=== PATIENT | male | born 1990 | race Asian ===

== ENCOUNTER 2023-11-01 22:48 | Inpatient (IN) | payer BC, MEDICAID ==
[~2023-11-01] VITALS: Ht 172.7 cm; Wt 93.3 kg
[2023-11-02] VITALS (21 sets, daily range): BP systolic 81–106; BP diastolic 46–59; PULSE 99–128; RESP 14–23; TEMP 97.5–99.9; O2SAT 94–98
[2023-11-02] MEDS ORDERED: iohexol 300mg/ml 100ml inj. ONE (00:38)
[2023-11-02] MEDS: piperacillin/tazo 3.375gm/50ml 50 ML IV ONE (00:58)
[2023-11-02] MEDS: normal saline 1000ML IV soln IVB ONE (00:59)
[2023-11-02 01:01] LABS: BASOPHILS % (AUTO) 0.4 % (0-1); EOSINOPHILS % (AUTO) 0.5 % (0-6); HEMATOCRIT 43.7 % (42.0-52.0); HEMOGLOBIN 15.3 g/dl (14.0-17.9); LYMPHOCYTES # (AUTO) 0.6 X10'3 (1.1-4.8); LYMPHOCYTES % (AUTO) 6.3 % (21-51); MEAN CORPUSCULAR HEMOGLOBIN 29.6 PG (27.0-31.0); MEAN CORPUSCULAR VOLUME 84.5 FL (78-98); MEAN PLATELET VOLUME 8.8 FL (7.4-10.4); MONOCYTES # (AUTO) 0.7 X10'3 (0-0.9); MONOCYTES % (AUTO) 7.6 % (2-12); NEUTROPHILS # (AUTO) 7.7 X10'3 (1.8-7.7); NEUTROPHILS % (AUTO) 85.2 % (42-75); PLATELET COUNT 212 X10'3 (140-440); RED BLOOD COUNT 5.17 X10'6 (4.70-6.10); WHITE BLOOD COUNT 9.1 X10'3 (4.5-11.0)
[2023-11-02 01:15] LABS: ALBUMIN 2.8 G/DL (3.4-5.0); ANION GAP 14 (8-16); BLOOD UREA NITROGEN 17 MG/DL (7-18); BUN/CREATININE RATIO 14.7 (10.0-20.0); CALCIUM 9.7 MG/DL (8.5-10.1); CHLORIDE 93 MMOL/L (99-107); CREATININE 1.16 MG/DL (0.60-1.10); POTASSIUM 3.6 MMOL/L (3.5-5.1); SODIUM 129 MMOL/L (135-145); TOTAL CARBON DIOXIDE 21.8 MMOL/L (24-32); eCRCL 88 ML/MIN; eGFR 73 ML/MIN
[2023-11-02 01:19] LABS: GLUCOSE 434 MG/DL (70-104)
[2023-11-02 01:37] LABS: LIPASE 11 U/L (16-77)
[2023-11-02] MEDS: metroNIDAZOLE-Flagyl 500mg/NS 100 ML IV ONE (01:48)
[2023-11-02] MEDS: morphine 2 MG/ML inj. syringe IV PRN (01:55)
[2023-11-02] MEDS ORDERED: CLOZ100T PO (02:21)
[2023-11-02] MEDS ORDERED: LITH150C8 PO (02:21)
[2023-11-02] MEDS ORDERED: potassium Cl 20 mEq SR tablet PO PRN (03:30)
[2023-11-02] MEDS ORDERED: magnesium 2GM in 50ml NS 50 ML IV PRN (03:30)
[2023-11-02] MEDS ORDERED: ondansetron 4mg rapidly disintigrating tab PO PRN (03:30)
[2023-11-02] MEDS ORDERED: acetaminophen 650mg rectal suppository RC PRN (03:30)
[2023-11-02] MEDS ORDERED: mag hydrox/Alum hydrox/simeth 30ml oral suspension PO PRN (03:30)
[2023-11-02] MEDS ORDERED: magnesium hydroxide 30ml (MOM) UD suspension PO PRN (03:30)
[2023-11-02] MEDS ORDERED: bisacodyl 10mg suppository rectal RC PRN (03:30)
[2023-11-02] MEDS ORDERED: magnesium Cl slow-release 64mg tablet PO PRN (03:30)
[2023-11-02] MEDS ORDERED: magnesium 4gm in 100ml NS 100 ML IV PRN (03:30)
[2023-11-02 03:38] LABS: ACETONE SMALL (NEGATIVE)
[2023-11-02] MEDS ORDERED: DEXTROSE 15 GM of carb/4 tabs (each vial/BOTTLE has 4 tablets) PO PRN ×4 (03:55→08:10)
[2023-11-02] MEDS ORDERED: dextrose 50%-water 50ml dispensing syringe IV PRN ×4 (03:55→08:10)
[2023-11-02] MEDS ORDERED: glucagon, human recombinant 1mg kit SUBCUT PRN ×2 (03:55→08:10)
[2023-11-02 03:56] LABS: MAGNESIUM 2.1 MG/DL (1.5-2.4); PHOSPHORUS 3.2 MG/DL (2.3-4.5)
[2023-11-02 04:00] LABS: APTT 26 SECONDS (22-32); INR 1.1 INR; PROTHROMBIN TIME 11.6 SECONDS (9.0-12.0)
[2023-11-02] MEDS: acetaminophen 1,000mg/100ml IV 100 ML IV STA (04:22)
[2023-11-02] MEDS: sodium chloride 0.45% 1,000 ML IV SCH (04:22)
[2023-11-02 04:52] LABS: TOTAL CELLS COUNTED 100
[2023-11-02 04:53] LABS: BURR CELLS 1+; ELLIPTOCYTES FEW; PLATELET ESTIMATE NORMAL; POIKILOCYTOSIS 1+
[2023-11-02] MEDS ORDERED: fentaNYL/PF 50MCG/1 ML 2ML syringe ONE ×2 (04:55→05:31)
[2023-11-02] MEDS ORDERED: propofol inj 20 ML IV ONE (04:56)
[2023-11-02] MEDS ORDERED: rocuronium 10mg/ml inj IV ONE (04:56)
[2023-11-02] MEDS ORDERED: midazolam 1 mg/ML 2ml injection ONE (04:56)
[2023-11-02] MEDS: HYDROmorphone inj. 0.5 MG/0.5 ML DISP.SYRIN IV PRN (05:03)
[2023-11-02] MEDS ORDERED: sevoflurane 250ml liquid IH ONE (05:09)
[2023-11-02] MEDS ORDERED: neostigmine methylsulfate 1 MG/ML 10ml vial ONE (06:24)
[2023-11-02] MEDS ORDERED: glycopyrrolate 0.2mg/ml inj ONE (06:24)
[2023-11-02] MEDS ORDERED: proCHLORperazine 10 MG/2 ml inj IV PRN (06:40)
[2023-11-02] MEDS ORDERED: ondansetron/PF 4mg/2ml inj IV PRN (06:40)
[2023-11-02] MEDS ORDERED: morphine 4 MG/ML inj SYRINge IV PRN (06:40)
[2023-11-02] MEDS ORDERED: morphine 2 MG/ML inj. syringe IV PRN (06:40)
[2023-11-02] MEDS ORDERED: meperidine/PF 25mg/ml syringe IV PRN ×3 (06:40)
[2023-11-02] MEDS ORDERED: metroNIDAZOLE-Flagyl 500mg/NS 100 ML IV SCH (08:00)
[2023-11-02] MEDS: LIDOcaine 1% (10mg/ml)w/preservative inj. 20ml MDV ONE (08:14)
[2023-11-02] MEDS: ringers solution, lacted 1,000 ML IV SCH (08:14)
[2023-11-02] MEDS: piperacillin/tazo 4.5gm/100ml 100 ML IV SCH (08:27)
[2023-11-02] MEDS: clindamycin 300mg/D5W 50mL 50 ML IV SCH (08:27)
[2023-11-02] MEDS: INSULIN LISPRO 100 UNIT/ML INSULN.PEN MULTI-DOSE SQ SCH ×2 (08:58→09:00)
[2023-11-02] MEDS: VANCOmycin 1250MG/NS 250ml Bag 250 ML IV SCH (09:04)
[2023-11-02] MEDS: docusate sod 100mg capsule PO SCH (09:43)
[2023-11-02] MEDS: lithium carbonate 150mg capsule PO SCH (09:43)
[2023-11-02] MEDS: K and/or MAG REPLACEMENT MC SCH (10:11)
[2023-11-02] MEDS ORDERED: INSULIN LISPRO 100 UNIT/ML INSULN.PEN MULTI-DOSE SQ SCH (12:00)
[2023-11-02] MEDS: normal saline 1000ml 1,000 ML IV SCH (12:33)
[2023-11-02] MEDS: HYDROcodone/acetaminophen 10/325mg tab PO PRN (18:17)
[2023-11-02] MEDS ORDERED: CLOZAPINE PO SCH (21:00)
[2023-11-02] MEDS ORDERED: insulin glargine (Lantus) pen - multi-dose SQ SCH (21:00)
[2023-11-02] MEDS: insulin glargine (Lantus) pen - multi-dose SQ SCH (22:43)
[2023-11-03] VITALS (15 sets, daily range): BP systolic 97–124; BP diastolic 53–71; PULSE 86–111; RESP 12–25; TEMP 98.1–98.6; O2SAT 96–99
[2023-11-03 05:44] LABS: BASOPHILS % (AUTO) 0.4 % (0-1); EOSINOPHILS # (AUTO) 0.1 X10'3 (0-0.9); EOSINOPHILS % (AUTO) 1.1 % (0-6); HEMATOCRIT 34.5 % (42.0-52.0); HEMOGLOBIN 11.9 g/dl (14.0-17.9); LYMPHOCYTES # (AUTO) 0.9 X10'3 (1.1-4.8); LYMPHOCYTES % (AUTO) 7.9 % (21-51); MEAN CORPUSCULAR HEMOGLOBIN 29.3 PG (27.0-31.0); MEAN CORPUSCULAR HGB CONC 34.6 g/dL (33.0-36.5); MEAN CORPUSCULAR VOLUME 84.8 FL (78-98); MEAN PLATELET VOLUME 8.8 FL (7.4-10.4); MONOCYTES # (AUTO) 1.4 X10'3 (0-0.9); MONOCYTES % (AUTO) 12.8 % (2-12); NEUTROPHILS # (AUTO) 8.4 X10'3 (1.8-7.7); NEUTROPHILS % (AUTO) 77.8 % (42-75); PLATELET COUNT 199 X10'3 (140-440); RED BLOOD COUNT 4.06 X10'6 (4.70-6.10); RED CELL DISTRIBUTION WIDTH 13.2 % (11.5-14.5); WHITE BLOOD COUNT 10.8 X10'3 (4.5-11.0)
[2023-11-03 06:06] LABS: ALANINE AMINOTRANSFERASE 31 U/L (12-78); ALBUMIN 1.4 G/DL (3.4-5.0); ALBUMIN/GLOBULIN RATIO 0.4 (1.1-1.5); ALKALINE PHOSPHATASE 102 IU/L (46-116); ANION GAP 13 (8-16); ASPARTATE AMINO TRANSFERASE 26 U/L (10-37); BILIRUBIN,TOTAL 0.7 MG/DL (0.1-1.0); BLOOD UREA NITROGEN 8 MG/DL (7-18); CALCIUM 8.3 MG/DL (8.5-10.1); CHLORIDE 99 MMOL/L (99-107); CHOL/HDL RATIO 8.4 (0.00-4.99); CHOLESTEROL 92 MG/DL (0-200); GLUCOSE 257 MG/DL (70-104); HDL CHOLESTEROL 11 MG/DL (35-60); LDL CHOLESTEROL 29 MG/DL (50-100); POTASSIUM 3.1 MMOL/L (3.5-5.1); SODIUM 133 MMOL/L (135-145); TOTAL CARBON DIOXIDE 21.2 MMOL/L (24-32); TOTAL PROTEIN 5.2 G/DL (6.4-8.2); TRIGLYCERIDES 281 MG/DL (20-135); eCRCL 127 ML/MIN; eGFR > 90 ML/MIN
[2023-11-03 07:31] LABS: MICROCYTOSIS 1+; PLATELET ESTIMATE NORMAL; TOTAL CELLS COUNTED 100
[2023-11-03] MEDS: potassium Cl 20 mEq SR tablet PO PRN (10:15)
[2023-11-03] MEDS ORDERED: morphine 2 MG/ML inj. syringe IV PRN (16:05)
[2023-11-03] MEDS ORDERED: morphine 4 MG/ML inj SYRINge IV PRN (16:05)
[2023-11-03] MEDS ORDERED: meperidine/PF 25mg/ml syringe IV PRN ×3 (16:05)
[2023-11-03] MEDS ORDERED: ondansetron/PF 4mg/2ml inj IV PRN (16:05)
[2023-11-03] MEDS ORDERED: proCHLORperazine 10 MG/2 ml inj IV PRN (16:05)
[2023-11-03] MEDS: ringers solution, lacted 1,000 ML IV SCH (16:05)
[2023-11-03] MEDS ORDERED: fentaNYL/PF 50MCG/1 ML 2ML syringe ONE ×2 (16:11→17:48)
[2023-11-03] MEDS ORDERED: propofol inj 20 ML IV ONE (16:11)
[2023-11-03] MEDS ORDERED: midazolam 1 mg/ML 2ml injection ONE (16:11)
[2023-11-03] MEDS ORDERED: rocuronium 10mg/ml inj IV ONE (16:11)
[2023-11-03] MEDS ORDERED: sevoflurane 250ml liquid IH ONE (16:14)
[2023-11-03] MEDS ORDERED: acetaminophen 1,000mg/100ml IV 100 ML IV ONE (18:31)
[2023-11-03] MEDS ORDERED: neostigmine methylsulfate 1 MG/ML 10ml vial ONE (18:57)
[2023-11-03] MEDS ORDERED: glycopyrrolate 0.2mg/ml inj ONE (18:58)
[2023-11-03] MEDS: VANCOMYCIN LEVEL IV ONE (20:30)
[2023-11-03] MEDS: HYDROmorphone/PF 0.2 MG/ML SYRINGE IV PRN (20:53)
[2023-11-03 21:10] LABS: ALBUMIN 1.2 G/DL (3.4-5.0); ANION GAP 10 (8-16); BLOOD UREA NITROGEN 8 MG/DL (7-18); BUN/CREATININE RATIO 10.5 (10.0-20.0); CALCIUM 7.6 MG/DL (8.5-10.1); CHLORIDE 103 MMOL/L (99-107); CREATININE 0.76 MG/DL (0.60-1.10); GLUCOSE 244 MG/DL (70-104); POTASSIUM 3.2 MMOL/L (3.5-5.1); SODIUM 136 MMOL/L (135-145); TOTAL CARBON DIOXIDE 22.9 MMOL/L (24-32); VANCOMYCIN,TROUGH 4.8 ug/mL (10.0-20.0); eCRCL 134 ML/MIN; eGFR > 90 ML/MIN
[2023-11-03] MEDS ORDERED: VANCOmycin 1250MG/NS 250ml Bag 250 ML IV SCH (21:25)
[2023-11-03] MEDS: potassium Cl 40MEQ/1/2NS 520ml 520 ML IV PRN (21:49)
[2023-11-03] MEDS: VANCOmycin 1250MG/NS 250ml Bag 250 ML IV SCH (21:50)
[2023-11-03 21:51] LABS: BASOPHILS % (AUTO) 0.3 % (0-1); EOSINOPHILS # (AUTO) 0.1 X10'3 (0-0.9); EOSINOPHILS % (AUTO) 0.5 % (0-6); HEMATOCRIT 34.3 % (42.0-52.0); HEMOGLOBIN 11.5 g/dl (14.0-17.9); LYMPHOCYTES # (AUTO) 0.7 X10'3 (1.1-4.8); LYMPHOCYTES % (AUTO) 5.9 % (21-51); MEAN CORPUSCULAR HEMOGLOBIN 28.6 PG (27.0-31.0); MEAN CORPUSCULAR HGB CONC 33.6 g/dL (33.0-36.5); MEAN CORPUSCULAR VOLUME 85.1 FL (78-98); MEAN PLATELET VOLUME 8.7 FL (7.4-10.4); MONOCYTES # (AUTO) 1.2 X10'3 (0-0.9); MONOCYTES % (AUTO) 9.8 % (2-12); NEUTROPHILS # (AUTO) 10.3 X10'3 (1.8-7.7); NEUTROPHILS % (AUTO) 83.5 % (42-75); PLATELET COUNT 198 X10'3 (140-440); RED BLOOD COUNT 4.03 X10'6 (4.70-6.10); RED CELL DISTRIBUTION WIDTH 13.3 % (11.5-14.5); WHITE BLOOD COUNT 12.4 X10'3 (4.5-11.0)
[2023-11-03 23:04] LABS: NUCLEATED RED BLOOD CELLS 1 /100WBC (0-0); PLATELET ESTIMATE NORMAL; TOTAL CELLS COUNTED 100
[2023-11-03 23:07] LABS: POIKILOCYTOSIS FEW
[2023-11-03] MEDS: clindamycin-Cleocin 900mg/D5W 50 ML IV SCH (23:27)
[2023-11-04] VITALS (23 sets, daily range): BP systolic 92–114; BP diastolic 44–60; PULSE 81–97; RESP 9–31; O2SAT 91–98
[2023-11-04] MEDS: acetaminophen 1,000mg/100ml IV 100 ML IV ONE (02:41)
[2023-11-04 03:11] LABS: BASOPHILS % (AUTO) 0.2 % (0-1); EOSINOPHILS # (AUTO) 0.1 X10'3 (0-0.9); EOSINOPHILS % (AUTO) 0.6 % (0-6); HEMOGLOBIN 11.3 g/dl (14.0-17.9); LYMPHOCYTES # (AUTO) 0.8 X10'3 (1.1-4.8); LYMPHOCYTES % (AUTO) 5.6 % (21-51); MEAN CORPUSCULAR HEMOGLOBIN 28.4 PG (27.0-31.0); MEAN CORPUSCULAR HGB CONC 33.4 g/dL (33.0-36.5); MEAN CORPUSCULAR VOLUME 85.2 FL (78-98); MEAN PLATELET VOLUME 8.7 FL (7.4-10.4); MONOCYTES % (AUTO) 7.2 % (2-12); NEUTROPHILS % (AUTO) 86.4 % (42-75); PLATELET COUNT 217 X10'3 (140-440); RED BLOOD COUNT 3.99 X10'6 (4.70-6.10); RED CELL DISTRIBUTION WIDTH 13.6 % (11.5-14.5); WHITE BLOOD COUNT 13.9 X10'3 (4.5-11.0)
[2023-11-04 03:34] LABS: ALANINE AMINOTRANSFERASE 25 U/L (12-78); ALBUMIN 1.2 G/DL (3.4-5.0); ALBUMIN/GLOBULIN RATIO 0.3 (1.1-1.5); ALKALINE PHOSPHATASE 90 IU/L (46-116); ANION GAP 9 (8-16); ASPARTATE AMINO TRANSFERASE 28 U/L (10-37); BILIRUBIN,TOTAL 0.6 MG/DL (0.1-1.0); BLOOD UREA NITROGEN 5 MG/DL (7-18); BUN/CREATININE RATIO 6.3 (10.0-20.0); CALCIUM 7.5 MG/DL (8.5-10.1); CHLORIDE 106 MMOL/L (99-107); GLUCOSE 219 MG/DL (70-104); MAGNESIUM 2.1 MG/DL (1.5-2.4); POTASSIUM 3.8 MMOL/L (3.5-5.1); SODIUM 138 MMOL/L (135-145); TOTAL CARBON DIOXIDE 23.2 MMOL/L (24-32); TOTAL PROTEIN 5.1 G/DL (6.4-8.2); eCRCL 127 ML/MIN; eGFR > 90 ML/MIN
[2023-11-04] MEDS ORDERED: VANCOmycin 1250MG/NS 250ml Bag 250 ML IV SCH (05:00)
[2023-11-04 08:09] LABS: PHOSPHORUS 2.8 MG/DL (2.3-4.5)
[2023-11-04] MEDS: acetaminophen 325mg tablet PO PRN (16:39)
[2023-11-04] MEDS: clozapine 100mg tablet PO SCH (20:35)
[2023-11-04] MEDS: albumin (human) 25% 100 ML IV solution IV ONE (20:36)
[2023-11-04] MEDS: VANCOMYCIN LEVEL IV ONE (20:36)
[2023-11-05] VITALS (10 sets, daily range): BP systolic 99–120; BP diastolic 49–59; PULSE 81–88; RESP 14–34; TEMP 98.8–99.1; O2SAT 94–96
[2023-11-05 04:31] LABS: BASOPHILS % (AUTO) 0.3 % (0-1); EOSINOPHILS # (AUTO) 0.1 X10'3 (0-0.9); EOSINOPHILS % (AUTO) 0.8 % (0-6); HEMATOCRIT 31.1 % (42.0-52.0); HEMOGLOBIN 10.3 g/dl (14.0-17.9); LYMPHOCYTES # (AUTO) 0.7 X10'3 (1.1-4.8); LYMPHOCYTES % (AUTO) 4.9 % (21-51); MEAN CORPUSCULAR HEMOGLOBIN 28.2 PG (27.0-31.0); MEAN CORPUSCULAR HGB CONC 33.1 g/dL (33.0-36.5); MEAN CORPUSCULAR VOLUME 85.2 FL (78-98); MEAN PLATELET VOLUME 8.3 FL (7.4-10.4); MONOCYTES # (AUTO) 0.9 X10'3 (0-0.9); NEUTROPHILS # (AUTO) 13.3 X10'3 (1.8-7.7); PLATELET COUNT 217 X10'3 (140-440); RED BLOOD COUNT 3.66 X10'6 (4.70-6.10); RED CELL DISTRIBUTION WIDTH 13.6 % (11.5-14.5); WHITE BLOOD COUNT 15.1 X10'3 (4.5-11.0)
[2023-11-05 04:48] LABS: ALANINE AMINOTRANSFERASE 28 U/L (12-78); ALBUMIN 1.7 G/DL (3.4-5.0); ALBUMIN/GLOBULIN RATIO 0.4 (1.1-1.5); ALKALINE PHOSPHATASE 94 IU/L (46-116); ANION GAP 11 (8-16); ASPARTATE AMINO TRANSFERASE 28 U/L (10-37); BILIRUBIN,TOTAL 0.7 MG/DL (0.1-1.0); BLOOD UREA NITROGEN 7 MG/DL (7-18); BUN/CREATININE RATIO 10.8 (10.0-20.0); CALCIUM 7.7 MG/DL (8.5-10.1); CHLORIDE 106 MMOL/L (99-107); CREATININE 0.65 MG/DL (0.60-1.10); GLUCOSE 267 MG/DL (70-104); MAGNESIUM 2.2 MG/DL (1.5-2.4); PHOSPHORUS 3.3 MG/DL (2.3-4.5); SODIUM 140 MMOL/L (135-145); TOTAL CARBON DIOXIDE 22.8 MMOL/L (24-32); TOTAL PROTEIN 5.5 G/DL (6.4-8.2); eCRCL 156 ML/MIN; eGFR > 90 ML/MIN
[2023-11-05 05:08] LABS: PLATELET ESTIMATE NORMAL; TOTAL CELLS COUNTED 100
[2023-11-05] MEDS ORDERED: magnesium 2GM in 50ml NS 50 ML IV PRN (05:10)
[2023-11-05] MEDS ORDERED: magnesium 4gm in 100ml NS 100 ML IV PRN (05:10)
[2023-11-05] MEDS: VANCOMYCIN 1,500MG in NS 300ml IVPB IV SCH (05:12)
[2023-11-05] MEDS: potassium Cl 40MEQ/1/2NS 520ml 520 ML IV PRN (05:28)
[2023-11-05] MEDS: INSULIN LISPRO 100 UNIT/ML INSULN.PEN MULTI-DOSE SQ SCH (09:00)
[2023-11-05] MEDS ORDERED: magnesium sulf-water 4G/100mL 100 ML IV PRN (20:45)
[2023-11-05] MEDS ORDERED: magnesium sulf-water 2g/50mL 50 ML IV PRN (20:45)
[2023-11-05] MEDS: insulin glargine (Lantus) pen - multi-dose SQ SCH (21:50)
[2023-11-05] MEDS: potassium Cl 20 mEq SR tablet PO PRN (22:26)
[2023-11-06] VITALS (18 sets, daily range): BP systolic 110–137; BP diastolic 55–127; PULSE 80–95; RESP 15–26; TEMP 97.8–99.7; O2SAT 92–99
[2023-11-06] MEDS: VANCOMYCIN LEVEL IV ONE (05:07)
[2023-11-06 05:12] LABS: BASOPHILS % (AUTO) 0.1 % (0-1); EOSINOPHILS # (AUTO) 0.1 X10'3 (0-0.9); HEMOGLOBIN 10.5 g/dl (14.0-17.9); LYMPHOCYTES # (AUTO) 0.9 X10'3 (1.1-4.8); LYMPHOCYTES % (AUTO) 6.6 % (21-51); MEAN CORPUSCULAR HEMOGLOBIN 28.9 PG (27.0-31.0); MEAN CORPUSCULAR HGB CONC 33.9 g/dL (33.0-36.5); MEAN CORPUSCULAR VOLUME 85.2 FL (78-98); MEAN PLATELET VOLUME 8.5 FL (7.4-10.4); MONOCYTES # (AUTO) 0.9 X10'3 (0-0.9); MONOCYTES % (AUTO) 6.2 % (2-12); NEUTROPHILS % (AUTO) 86.1 % (42-75); PLATELET COUNT 237 X10'3 (140-440); RED BLOOD COUNT 3.63 X10'6 (4.70-6.10); RED CELL DISTRIBUTION WIDTH 13.5 % (11.5-14.5); WHITE BLOOD COUNT 13.9 X10'3 (4.5-11.0)
[2023-11-06 05:37] LABS: ALANINE AMINOTRANSFERASE 32 U/L (12-78); ALBUMIN 1.5 G/DL (3.4-5.0); ALBUMIN/GLOBULIN RATIO 0.4 (1.1-1.5); ALKALINE PHOSPHATASE 87 IU/L (46-116); ANION GAP 10 (8-16); ASPARTATE AMINO TRANSFERASE 27 U/L (10-37); BILIRUBIN,TOTAL 0.5 MG/DL (0.1-1.0); BLOOD UREA NITROGEN 7 MG/DL (7-18); BUN/CREATININE RATIO 10.8 (10.0-20.0); CALCIUM 7.5 MG/DL (8.5-10.1); CHLORIDE 107 MMOL/L (99-107); CREATININE 0.65 MG/DL (0.60-1.10); GLUCOSE 238 MG/DL (70-104); MAGNESIUM 2.2 MG/DL (1.5-2.4); PHOSPHORUS 2.9 MG/DL (2.3-4.5); POTASSIUM 3.1 MMOL/L (3.5-5.1); SODIUM 141 MMOL/L (135-145); TOTAL CARBON DIOXIDE 24.2 MMOL/L (24-32); TOTAL PROTEIN 5.5 G/DL (6.4-8.2); VANCOMYCIN,TROUGH 14.9 ug/mL (10.0-20.0); eCRCL 156 ML/MIN; eGFR > 90 ML/MIN
[2023-11-06] MEDS: MULTIVIT-MIN/FERROUS GLUCONATE 9 MG/15 ML LIQUID PO SCH (09:17)
[2023-11-06] MEDS: vancomycin 1,750 MG in NS 350ml IV soln IV SCH (14:08)
[2023-11-06] MEDS ORDERED: morphine 2 MG/ML inj. syringe IV PRN (17:45)
[2023-11-06] MEDS ORDERED: ondansetron/PF 4mg/2ml inj IV PRN (17:45)
[2023-11-06] MEDS: ringers solution, lacted 1,000 ML IV SCH (17:45)
[2023-11-06] MEDS ORDERED: meperidine/PF 25mg/ml syringe IV PRN ×3 (17:45)
[2023-11-06] MEDS ORDERED: proCHLORperazine 10 MG/2 ml inj IV PRN (17:45)
[2023-11-06] MEDS ORDERED: morphine 4 MG/ML inj SYRINge IV PRN (17:45)
[2023-11-06] MEDS ORDERED: midazolam 1 mg/ML 2ml injection ONE (17:57)
[2023-11-06] MEDS ORDERED: fentaNYL/PF 50MCG/1 ML 2ML syringe ONE (17:57)
[2023-11-06] MEDS ORDERED: propofol inj 20 ML IV ONE (17:58)
[2023-11-06] MEDS ORDERED: sevoflurane 250ml liquid IH ONE (18:11)
[2023-11-07] VITALS (7 sets, daily range): BP systolic 110–120; BP diastolic 58–63; PULSE 78–94; RESP 14–22; TEMP 97.3–99; O2SAT 92–97
[2023-11-07 04:23] LABS: BASOPHILS % (AUTO) 0.1 % (0-1); EOSINOPHILS % (AUTO) 0.1 % (0-6); HEMATOCRIT 31.1 % (42.0-52.0); HEMOGLOBIN 10.5 g/dl (14.0-17.9); LYMPHOCYTES # (AUTO) 0.7 X10'3 (1.1-4.8); LYMPHOCYTES % (AUTO) 3.9 % (21-51); MEAN CORPUSCULAR HEMOGLOBIN 28.9 PG (27.0-31.0); MEAN CORPUSCULAR HGB CONC 33.7 g/dL (33.0-36.5); MEAN CORPUSCULAR VOLUME 85.6 FL (78-98); MEAN PLATELET VOLUME 8.1 FL (7.4-10.4); MONOCYTES # (AUTO) 0.8 X10'3 (0-0.9); MONOCYTES % (AUTO) 4.6 % (2-12); NEUTROPHILS # (AUTO) 15.4 X10'3 (1.8-7.7); NEUTROPHILS % (AUTO) 91.3 % (42-75); PLATELET COUNT 282 X10'3 (140-440); RED BLOOD COUNT 3.63 X10'6 (4.70-6.10); RED CELL DISTRIBUTION WIDTH 13.7 % (11.5-14.5); WHITE BLOOD COUNT 16.9 X10'3 (4.5-11.0)
[2023-11-07 04:37] LABS: ALANINE AMINOTRANSFERASE 39 U/L (12-78); ALBUMIN 1.4 G/DL (3.4-5.0); ALBUMIN/GLOBULIN RATIO 0.4 (1.1-1.5); ALKALINE PHOSPHATASE 90 IU/L (46-116); ANION GAP 9 (8-16); ASPARTATE AMINO TRANSFERASE 37 U/L (10-37); BILIRUBIN,TOTAL 0.6 MG/DL (0.1-1.0); BLOOD UREA NITROGEN 6 MG/DL (7-18); BUN/CREATININE RATIO 8.7 (10.0-20.0); CALCIUM 7.3 MG/DL (8.5-10.1); CHLORIDE 106 MMOL/L (99-107); CREATININE 0.69 MG/DL (0.60-1.10); GLUCOSE 249 MG/DL (70-104); MAGNESIUM 2.1 MG/DL (1.5-2.4); PHOSPHORUS 2.9 MG/DL (2.3-4.5); POTASSIUM 3.2 MMOL/L (3.5-5.1); SODIUM 140 MMOL/L (135-145); TOTAL CARBON DIOXIDE 24.6 MMOL/L (24-32); TOTAL PROTEIN 5.2 G/DL (6.4-8.2); eCRCL 147 ML/MIN; eGFR > 90 ML/MIN
[2023-11-07] MEDS: VANCOMYCIN LEVEL IV ONE (12:30)
[2023-11-07] MEDS: acetaminophen 325mg tablet PO PRN (13:09)
[2023-11-07] MEDS: ARGININE/GLUTAMINE/CALCIUM BMB (JUVEN 19.3GM PKT) 1 EACH POWD.PACK PO SCH (17:30)
[2023-11-08] VITALS (16 sets, daily range): BP systolic 92–129; BP diastolic 45–73; PULSE 73–109; RESP 15–22; TEMP 97.4–98.2; O2SAT 94–99
[2023-11-08 07:34] LABS: BASOPHILS % (AUTO) 0.1 % (0-1); EOSINOPHILS # (AUTO) 0.1 X10'3 (0-0.9); EOSINOPHILS % (AUTO) 0.8 % (0-6); LYMPHOCYTES # (AUTO) 0.8 X10'3 (1.1-4.8); LYMPHOCYTES % (AUTO) 5.1 % (21-51); MEAN CORPUSCULAR HEMOGLOBIN 28.3 PG (27.0-31.0); MEAN CORPUSCULAR HGB CONC 32.8 g/dL (33.0-36.5); MEAN CORPUSCULAR VOLUME 86.3 FL (78-98); MEAN PLATELET VOLUME 7.6 FL (7.4-10.4); MONOCYTES # (AUTO) 0.7 X10'3 (0-0.9); MONOCYTES % (AUTO) 4.6 % (2-12); NEUTROPHILS # (AUTO) 14.2 X10'3 (1.8-7.7); NEUTROPHILS % (AUTO) 89.4 % (42-75); PRE OP HEMATOCRIT 30.3 % (42.0-52.0); PRE OP PLATELET COUNT 320 X10'3 (140-440); RED BLOOD COUNT 3.51 X10'6 (4.70-6.10)
[2023-11-08 07:41] LABS: PRE OP WHITE BLOOD COUNT 15.8 10'3 (4.8-10.8)
[2023-11-08 07:42] LABS: INR 1.2 INR; PRE OP HEMOGLOBIN 9.9 g/dL (14.0-17.9); PROTHROMBIN TIME 12.3 SECONDS (9.0-12.0)
[2023-11-08 07:44] LABS: ALANINE AMINOTRANSFERASE 35 U/L (12-78); ALBUMIN 1.3 G/DL (3.4-5.0); ALBUMIN/GLOBULIN RATIO 0.3 (1.1-1.5); ALKALINE PHOSPHATASE 82 IU/L (46-116); ANION GAP 8 (8-16); ASPARTATE AMINO TRANSFERASE 20 U/L (10-37); BILIRUBIN,TOTAL 0.4 MG/DL (0.1-1.0); BLOOD UREA NITROGEN 5 MG/DL (7-18); BUN/CREATININE RATIO 8.1 (10.0-20.0); CALCIUM 7.3 MG/DL (8.5-10.1); CHLORIDE 111 MMOL/L (99-107); CREATININE 0.62 MG/DL (0.60-1.10); GLUCOSE 206 MG/DL (70-104); SODIUM 143 MMOL/L (135-145); TOTAL CARBON DIOXIDE 24.3 MMOL/L (24-32); TOTAL PROTEIN 5.2 G/DL (6.4-8.2); eCRCL 164 ML/MIN; eGFR > 90 ML/MIN
[2023-11-08 08:00] LABS: POTASSIUM 2.9 MMOL/L (3.5-5.1)
[2023-11-08 17:41] LABS: C-REACTIVE PROTEIN 14.73 MG/DL (0.0-0.5); CREATINE KINASE 63 U/L (39-308); LACTATE DEHYDROGENASE 362 U/L (85-227)
[2023-11-08 17:51] LABS: OSMOLALITY 300 MOSM/K (280-300)
[2023-11-08 18:41] LABS: BILIRUBIN,URINE NEGATIVE (Neg); CLARITY,URINE CLEAR (Clear); COLOR,URINE YELLOW (Yellow); GLUCOSE, URINE 100 mg/dl (Neg); KETONES,URINE 15 mg/dl (Neg); LEUKOCYTE ESTERASE ,URINE NEGATIVE (Neg); NITRITES, URINE NEGATIVE (Neg); OCCULT BLOOD,URINE NEGATIVE (Neg); PROTEIN,URINE NEGATIVE (Neg); UROBILINOGEN,URINE 0.2 E.U/dL (0.2-1.0)
[2023-11-08 18:47] LABS: UA COLLECTION TYPE NON-SPECIFIED
[2023-11-08] MEDS ORDERED: sevoflurane 250ml liquid IH ONE (19:35)
[2023-11-08 19:48] LABS: ISTAT ANION GAP 9 (8-12); ISTAT BUN 5 mg/dL (7-18); ISTAT CL 108 mmol/L (99-107); ISTAT CREATININE 0.5 mg/dL (0.8-1.3); ISTAT GLUCOSE 182 mg/dL (70-104); ISTAT HGB 11.6 g/dl (14.0-17.9); ISTAT Hct 34 %PCV (42-52); ISTAT K 3.1 mmol/L (3.5-5.1); ISTAT NA 142 mmol/L (135-145); ISTAT TOTAL CO2 25 mmol/L (24-32); ISTAT eGFR > 90 ML/MIN
[2023-11-08] MEDS ORDERED: meperidine/PF 25mg/ml syringe IV PRN (19:50)
[2023-11-08] MEDS ORDERED: morphine 2 MG/ML inj. syringe IV PRN (19:50)
[2023-11-08] MEDS ORDERED: hydrALAZINE 20mg/ml inj. IV PRN (19:50)
[2023-11-08] MEDS ORDERED: labetalol 20mg/4ml (5mg/ml) syringe IV PRN (19:50)
[2023-11-08] MEDS ORDERED: proCHLORperazine 10 MG/2 ml inj IV PRN (19:50)
[2023-11-08] MEDS ORDERED: morphine 4 MG/ML inj SYRINge IV PRN (19:50)
[2023-11-08] MEDS ORDERED: ondansetron/PF 4mg/2ml inj IV PRN (19:50)
[2023-11-08] MEDS ORDERED: HYDROmorphone/PF 0.2 MG/ML SYRINGE IV PRN (19:50)
[2023-11-08] MEDS: ringers solution, lacted 1,000 ML IV SCH (19:50)
[2023-11-08] MEDS ORDERED: midazolam 1 mg/ML 2ml injection ONE (19:53)
[2023-11-08] MEDS ORDERED: fentaNYL /PF 50mcg/ml 5ml ampule ONE ×2 (19:55→21:28)
[2023-11-08] MEDS ORDERED: rocuronium 10mg/ml inj IV ONE (20:36)
[2023-11-08] MEDS ORDERED: LIDOcaine 2% (20mg/ml) 5ml vial ONE (20:36)
[2023-11-08] MEDS ORDERED: propofol inj 20 ML IV ONE (20:36)
[2023-11-08] MEDS ORDERED: ondansetron/PF 4mg/2ml inj ONE (20:36)
[2023-11-08] MEDS ORDERED: 0.9 % SODIUM CHLORIDE 10 ML VIAL ONE ×4 (21:28)
[2023-11-08] MEDS ORDERED: phenylephrine 10mg/ml inj. -priapism dosing ONE (21:28)
[2023-11-08] MEDS ORDERED: albumin (Human) 5% 250ml 250 ML IV ONE ×2 (21:29)
[2023-11-08] MEDS ORDERED: neostigmine methylsulfate 1 MG/ML 10ml vial ONE (21:54)
[2023-11-08] MEDS ORDERED: glycopyrrolate 0.2mg/ml inj ONE (21:54)
[2023-11-08] MEDS: acetaminophen 1,000mg/100ml IV 100 ML IV ONE (22:30)
[2023-11-08] MEDS: HYDROmorphone/PF 0.2 MG/ML SYRINGE IV PRN (22:38)
[2023-11-08] MEDS: insulin regular, human 10 units/0.1 ml syringe IV ONE (22:42)
[2023-11-09] VITALS (11 sets, daily range): BP systolic 88–119; BP diastolic 52–64; PULSE 77–90; RESP 16–20; TEMP 97.2–98.6; O2SAT 93–96
[2023-11-09 05:00] LABS: BASOPHILS % (AUTO) 0.2 % (0-1); EOSINOPHILS # (AUTO) 0.1 X10'3 (0-0.9); EOSINOPHILS % (AUTO) 0.4 % (0-6); HEMATOCRIT 23.4 % (42.0-52.0); HEMOGLOBIN 7.8 g/dl (14.0-17.9); LYMPHOCYTES # (AUTO) 0.9 X10'3 (1.1-4.8); LYMPHOCYTES % (AUTO) 5.5 % (21-51); MEAN CORPUSCULAR HEMOGLOBIN 28.6 PG (27.0-31.0); MEAN CORPUSCULAR HGB CONC 33.3 g/dL (33.0-36.5); MEAN CORPUSCULAR VOLUME 85.9 FL (78-98); MEAN PLATELET VOLUME 7.5 FL (7.4-10.4); MONOCYTES # (AUTO) 0.6 X10'3 (0-0.9); MONOCYTES % (AUTO) 3.7 % (2-12); NEUTROPHILS # (AUTO) 15.2 X10'3 (1.8-7.7); NEUTROPHILS % (AUTO) 90.2 % (42-75); PLATELET COUNT 360 X10'3 (140-440); RED BLOOD COUNT 2.73 X10'6 (4.70-6.10); RED CELL DISTRIBUTION WIDTH 13.9 % (11.5-14.5); WHITE BLOOD COUNT 16.9 X10'3 (4.5-11.0)
[2023-11-09 05:52] LABS: ALBUMIN 1.5 G/DL (3.4-5.0); ANION GAP 9 (8-16); BLOOD UREA NITROGEN 6 MG/DL (7-18); BUN/CREATININE RATIO 8.8 (10.0-20.0); CALCIUM 7.3 MG/DL (8.5-10.1); CHLORIDE 109 MMOL/L (99-107); CREATININE 0.68 MG/DL (0.60-1.10); GLUCOSE 214 MG/DL (70-104); POTASSIUM 3.1 MMOL/L (3.5-5.1); SODIUM 140 MMOL/L (135-145); TOTAL CARBON DIOXIDE 21.9 MMOL/L (24-32); eCRCL 149 ML/MIN; eGFR > 90 ML/MIN
[2023-11-09] MEDS: Dakins solution (1/4 strength) 473ml solution TP SCH (10:22)
[2023-11-09] MEDS: magnesium hydroxide 30ml (MOM) UD suspension PO SCH (13:17)
[2023-11-09] MEDS: JUVEN Smoothie Arginine/Glut./Ca2+Bmb (Juven 19.3pkt) 240ml cup PO SCH (17:38)
[2023-11-10] VITALS (20 sets, daily range): BP systolic 108–131; BP diastolic 55–83; PULSE 65–99; RESP 14–19; TEMP 97.2–98.4; O2SAT 93–99
[2023-11-10] MEDS: ondansetron/PF 4mg/2ml inj IV PRN (05:57)
[2023-11-10 08:37] LABS: BASOPHILS % (AUTO) 0.3 % (0-1); EOSINOPHILS # (AUTO) 0.1 X10'3 (0-0.9); EOSINOPHILS % (AUTO) 1.1 % (0-6); HEMATOCRIT 23.2 % (42.0-52.0); HEMOGLOBIN 7.9 g/dl (14.0-17.9); LYMPHOCYTES # (AUTO) 0.7 X10'3 (1.1-4.8); MEAN CORPUSCULAR HEMOGLOBIN 28.7 PG (27.0-31.0); MEAN CORPUSCULAR HGB CONC 33.9 g/dL (33.0-36.5); MEAN CORPUSCULAR VOLUME 84.7 FL (78-98); MEAN PLATELET VOLUME 7.1 FL (7.4-10.4); MONOCYTES # (AUTO) 0.4 X10'3 (0-0.9); MONOCYTES % (AUTO) 3.8 % (2-12); NEUTROPHILS % (AUTO) 87.8 % (42-75); PLATELET COUNT 489 X10'3 (140-440); RED BLOOD COUNT 2.74 X10'6 (4.70-6.10); RED CELL DISTRIBUTION WIDTH 13.6 % (11.5-14.5); WHITE BLOOD COUNT 10.2 X10'3 (4.5-11.0)
[2023-11-10 08:49] LABS: ALANINE AMINOTRANSFERASE 25 U/L (12-78); ALBUMIN 1.5 G/DL (3.4-5.0); ALBUMIN/GLOBULIN RATIO 0.4 (1.1-1.5); ALKALINE PHOSPHATASE 62 IU/L (46-116); ANION GAP 9 (8-16); ASPARTATE AMINO TRANSFERASE 16 U/L (10-37); BILIRUBIN,TOTAL 0.3 MG/DL (0.1-1.0); BLOOD UREA NITROGEN 6 MG/DL (7-18); BUN/CREATININE RATIO 13.6 (10.0-20.0); CALCIUM 7.3 MG/DL (8.5-10.1); CHLORIDE 109 MMOL/L (99-107); CREATININE 0.44 MG/DL (0.60-1.10); GLUCOSE 192 MG/DL (70-104); POTASSIUM 3.2 MMOL/L (3.5-5.1); SODIUM 142 MMOL/L (135-145); TOTAL CARBON DIOXIDE 23.9 MMOL/L (24-32); TOTAL PROTEIN 5.1 G/DL (6.4-8.2); eCRCL 231 ML/MIN; eGFR > 90 ML/MIN
[2023-11-10] MEDS ORDERED: ondansetron/PF 4mg/2ml inj IV PRN (11:40)
[2023-11-10] MEDS ORDERED: meperidine/PF 25mg/ml syringe IV PRN (11:40)
[2023-11-10] MEDS: ringers solution, lacted 1,000 ML IV SCH (11:40)
[2023-11-10] MEDS ORDERED: HYDROmorphone/PF 0.2 MG/ML SYRINGE IV PRN ×2 (11:40)
[2023-11-10] MEDS ORDERED: morphine 2 MG/ML inj. syringe IV PRN (11:40)
[2023-11-10] MEDS ORDERED: proCHLORperazine 10 MG/2 ml inj IV PRN (11:40)
[2023-11-10] MEDS ORDERED: morphine 4 MG/ML inj SYRINge IV PRN (11:40)
[2023-11-10] MEDS ORDERED: midazolam 1 mg/ML 2ml injection ONE (11:58)
[2023-11-10] MEDS ORDERED: fentaNYL /PF 50mcg/ml 5ml ampule ONE (11:58)
[2023-11-10] MEDS ORDERED: sevoflurane 250ml liquid IH ONE (12:15)
[2023-11-10] MEDS ORDERED: propofol inj 20 ML IV ONE (12:30)
[2023-11-10] MEDS ORDERED: ondansetron/PF 4mg/2ml inj ONE (12:30)
[2023-11-10] MEDS ORDERED: dexamethasone sod phosphate 4mg/ml inj. ONE (12:30)
[2023-11-10] MEDS ORDERED: LIDOcaine 2% (20mg/ml) 5ml vial ONE (12:30)
[2023-11-10] MEDS ORDERED: rocuronium 10mg/ml inj IV ONE (12:30)
[2023-11-10] MEDS ORDERED: neostigmine methylsulfate 1 MG/ML 10ml vial ONE (13:35)
[2023-11-10] MEDS ORDERED: glycopyrrolate 0.2mg/ml inj ONE (13:35)
[2023-11-10] MEDS: acetaminophen 1,000mg/100ml IV 100 ML IV ONE (13:44)
[2023-11-11] VITALS (8 sets, daily range): BP systolic 101–122; BP diastolic 54–70; PULSE 66–78; RESP 13–20; TEMP 97.5–99.4; O2SAT 94–96
[2023-11-11] MEDS: lactose-reduced food (Ensure Enlive) - 237ml bottle PO SCH (17:35)
[2023-11-11] MEDS: morphine 2 MG/ML inj. syringe IV PRN (23:58)
[2023-11-12] MEDS: HYDROcodone/acetaminophen 5mg/325mg tablet PO PRN (00:34)
[2023-11-12 02:18] VITALS: O2SAT 95
[2023-11-12 06:00] VITALS: BP 115/68; PULSE 70; RESP 14; TEMP 96.6; O2SAT 96
[2023-11-12 06:22] LABS: ALBUMIN 1.7 G/DL (3.4-5.0); ANION GAP 7 (8-16); BLOOD UREA NITROGEN 8 MG/DL (7-18); BUN/CREATININE RATIO 12.9 (10.0-20.0); CALCIUM 7.5 MG/DL (8.5-10.1); CHLORIDE 110 MMOL/L (99-107); CREATININE 0.62 MG/DL (0.60-1.10); GLUCOSE 156 MG/DL (70-104); POTASSIUM 3.3 MMOL/L (3.5-5.1); SODIUM 144 MMOL/L (135-145); TOTAL CARBON DIOXIDE 27.5 MMOL/L (24-32); eCRCL 164 ML/MIN; eGFR > 90 ML/MIN
[2023-11-12 12:00] VITALS: BP 122/71; PULSE 77; RESP 18; TEMP 98; O2SAT 98
[2023-11-12 15:53] LABS: BASOPHILS # (AUTO) 0.1 X10'3 (0-0.2); EOSINOPHILS # (AUTO) 0.1 X10'3 (0-0.9); EOSINOPHILS % (AUTO) 0.8 % (0-6); HEMOGLOBIN 7.9 g/dl (14.0-17.9); LYMPHOCYTES # (AUTO) 0.8 X10'3 (1.1-4.8); MONOCYTES # (AUTO) 0.6 X10'3 (0-0.9)
[2023-11-12 15:55] LABS: BASOPHILS % (AUTO) 0.6 % (0-1); HEMATOCRIT 23.9 % (42.0-52.0); LYMPHOCYTES % (AUTO) 7.3 % (21-51); MEAN CORPUSCULAR HEMOGLOBIN 28.2 PG (27.0-31.0); MEAN CORPUSCULAR VOLUME 85.3 FL (78-98); MEAN PLATELET VOLUME 6.5 FL (7.4-10.4); NEUTROPHILS % (AUTO) 86.3 % (42-75); PLATELET COUNT 732 X10'3 (140-440); WHITE BLOOD COUNT 11.6 X10'3 (4.5-11.0)
[2023-11-12 18:00] VITALS: BP 108/56; PULSE 67; RESP 17; TEMP 97.7; O2SAT 95
[2023-11-12 20:00] VITALS: RESP 16; O2SAT 96
[2023-11-12 22:00] VITALS: BP 122/60; PULSE 60; RESP 20; TEMP 98.2; O2SAT 95
[2023-11-12] MEDS: enoxaparin 30mg/0.3ml syringe SUBCUT SCH (22:28)
[2023-11-13] VITALS (17 sets, daily range): BP systolic 83–131; BP diastolic 58–77; PULSE 16–95; RESP 12–20; TEMP 98.1–98.6; O2SAT 93–100
[2023-11-13 06:06] LABS: BASOPHILS # (AUTO) 0.1 X10'3 (0-0.2); EOSINOPHILS # (AUTO) 0.1 X10'3 (0-0.9); EOSINOPHILS % (AUTO) 1.3 % (0-6); HEMATOCRIT 23.1 % (42.0-52.0); HEMOGLOBIN 7.9 g/dl (14.0-17.9); MEAN CORPUSCULAR VOLUME 85.7 FL (78-98); MEAN PLATELET VOLUME 6.6 FL (7.4-10.4); MONOCYTES # (AUTO) 0.6 X10'3 (0-0.9)
[2023-11-13 06:09] LABS: BASOPHILS % (AUTO) 0.8 % (0-1); LYMPHOCYTES % (AUTO) 9.5 % (21-51); MEAN CORPUSCULAR HEMOGLOBIN 29.2 PG (27.0-31.0); MEAN CORPUSCULAR HGB CONC 34.1 g/dL (33.0-36.5); MONOCYTES % (AUTO) 6.2 % (2-12); NEUTROPHILS # (AUTO) 8.2 X10'3 (1.8-7.7); NEUTROPHILS % (AUTO) 82.2 % (42-75); PLATELET COUNT 722 X10'3 (140-440); RED CELL DISTRIBUTION WIDTH 13.5 % (11.5-14.5)
[2023-11-13 06:17] LABS: INR 1.1 INR; PRE OP PARTIAL THROMB. TIME 26 SECONDS (22-32); PROTHROMBIN TIME 11.6 SECONDS (9.0-12.0)
[2023-11-13 06:35] LABS: ALBUMIN 1.8 G/DL (3.4-5.0); ALBUMIN/GLOBULIN RATIO 0.5 (1.1-1.5); ALKALINE PHOSPHATASE 64 IU/L (46-116); BLOOD UREA NITROGEN 5 MG/DL (7-18); BUN/CREATININE RATIO 7.8 (10.0-20.0); CALCIUM 7.8 MG/DL (8.5-10.1); CHLORIDE 110 MMOL/L (99-107); CREATININE 0.64 MG/DL (0.60-1.10); PRE OP ALT 26 U/L (30-65); PRE OP ANION GAP 6 (8-16); PRE OP AST 16 U/L (10-37); PRE OP BILIRUB, TOTAL 0.3 MG/DL (0.0-1.0); PRE OP GLUCOSE 151 MG/DL (70-104); PRE OP POTASSIUM 3.5 MMOL/L (3.4-5.1); PRE OP SODIUM 141 MMOL/L (135-145); TOTAL CARBON DIOXIDE 24.7 MMOL/L (24-32); TOTAL PROTEIN 5.4 G/DL (6.4-8.2); eCRCL 159 ML/MIN; eGFR > 90 ML/MIN
[2023-11-13] MEDS ORDERED: sevoflurane 250ml liquid IH ONE (09:02)
[2023-11-13] MEDS ORDERED: midazolam 1 mg/ML 2ml injection ONE (09:08)
[2023-11-13] MEDS ORDERED: fentaNYL/PF 50MCG/1 ML 2ML syringe ONE (09:08)
[2023-11-13] MEDS ORDERED: morphine 2 MG/ML inj. syringe IV PRN (09:50)
[2023-11-13] MEDS ORDERED: ondansetron/PF 4mg/2ml inj IV PRN (09:50)
[2023-11-13] MEDS ORDERED: proCHLORperazine 10 MG/2 ml inj IV PRN (09:50)
[2023-11-13] MEDS ORDERED: morphine 4 MG/ML inj SYRINge IV PRN (09:50)
[2023-11-13] MEDS: ringers solution, lacted 1,000 ML IV SCH (09:50)
[2023-11-13] MEDS ORDERED: meperidine/PF 25mg/ml syringe IV PRN ×3 (09:50)
[2023-11-14 06:00] VITALS: BP 123/63; PULSE 86; RESP 20; TEMP 98.3; O2SAT 96
[2023-11-14 10:00] VITALS: BP 128/74; PULSE 74; RESP 18; TEMP 98.3; O2SAT 96
[2023-11-14 18:00] VITALS: BP 125/68; PULSE 82; RESP 16; TEMP 98.7; O2SAT 94
[2023-11-14] MEDS: lactose-reduced food (Ensure Enlive) - 237ml bottle PO SCH (18:00)
[2023-11-14 20:00] VITALS: RESP 16; O2SAT 94
[2023-11-14 22:00] VITALS: BP 122/68; PULSE 78; RESP 18; TEMP 98.2; O2SAT 95
[2023-11-15 03:00] LABS: BASOPHILS # (AUTO) 0.1 X10'3 (0-0.2); BASOPHILS % (AUTO) 1.1 % (0-1); EOSINOPHILS # (AUTO) 0.2 X10'3 (0-0.9); EOSINOPHILS % (AUTO) 1.8 % (0-6); HEMATOCRIT 25.3 % (42.0-52.0); HEMOGLOBIN 8.5 g/dl (14.0-17.9); LYMPHOCYTES # (AUTO) 1.2 X10'3 (1.1-4.8); LYMPHOCYTES % (AUTO) 11.7 % (21-51); MEAN CORPUSCULAR HEMOGLOBIN 29.1 PG (27.0-31.0); MEAN CORPUSCULAR HGB CONC 33.5 g/dL (33.0-36.5); MEAN PLATELET VOLUME 6.6 FL (7.4-10.4); MONOCYTES # (AUTO) 0.7 X10'3 (0-0.9); NEUTROPHILS # (AUTO) 8.1 X10'3 (1.8-7.7); NEUTROPHILS % (AUTO) 78.4 % (42-75); PLATELET COUNT 883 X10'3 (140-440); RED BLOOD COUNT 2.91 X10'6 (4.70-6.10); RED CELL DISTRIBUTION WIDTH 14.9 % (11.5-14.5); WHITE BLOOD COUNT 10.4 X10'3 (4.5-11.0)
[2023-11-15 03:08] LABS: ALANINE AMINOTRANSFERASE 28 U/L (12-78); ALBUMIN 2.1 G/DL (3.4-5.0); ALBUMIN/GLOBULIN RATIO 0.5 (1.1-1.5); ALKALINE PHOSPHATASE 68 IU/L (46-116); ANION GAP 8 (8-16); ASPARTATE AMINO TRANSFERASE 15 U/L (10-37); BILIRUBIN,TOTAL 0.3 MG/DL (0.1-1.0); BLOOD UREA NITROGEN 7 MG/DL (7-18); BUN/CREATININE RATIO 11.1 (10.0-20.0); CALCIUM 8.4 MG/DL (8.5-10.1); CHLORIDE 108 MMOL/L (99-107); CREATININE 0.63 MG/DL (0.60-1.10); GLUCOSE 169 MG/DL (70-104); POTASSIUM 3.4 MMOL/L (3.5-5.1); SODIUM 142 MMOL/L (135-145); TOTAL CARBON DIOXIDE 25.9 MMOL/L (24-32); eCRCL 161 ML/MIN; eGFR > 90 ML/MIN
[2023-11-15 11:10] VITALS: BP 111/72; PULSE 82; RESP 16; TEMP 98.6; O2SAT 95
[2023-11-15 11:17] VITALS: BP 127/73; PULSE 93; RESP 14; TEMP 97.7; O2SAT 98
[2023-11-15 18:00] VITALS: BP 148/81; PULSE 94; RESP 16; TEMP 97.6; O2SAT 95
[2023-11-15 20:00] VITALS: RESP 16; O2SAT 93
[2023-11-15 22:00] VITALS: BP 136/72; PULSE 91; RESP 20; TEMP 97.8; O2SAT 92
[2023-11-16 06:00] VITALS: BP 117/74; PULSE 83; RESP 16; TEMP 97.1; O2SAT 94
[2023-11-16 08:00] VITALS: RESP 16; O2SAT 95
[2023-11-16 10:00] VITALS: BP 126/74; PULSE 80; RESP 16; TEMP 97.7; O2SAT 95
[2023-11-16 11:21] LABS: BASOPHILS # (AUTO) 0.1 X10'3 (0-0.2); BASOPHILS % (AUTO) 1.2 % (0-1); EOSINOPHILS # (AUTO) 0.2 X10'3 (0-0.9); EOSINOPHILS % (AUTO) 1.9 % (0-6); HEMATOCRIT 26.6 % (42.0-52.0); HEMOGLOBIN 8.9 g/dl (14.0-17.9); LYMPHOCYTES # (AUTO) 0.8 X10'3 (1.1-4.8); LYMPHOCYTES % (AUTO) 7.8 % (21-51); MEAN CORPUSCULAR HEMOGLOBIN 28.8 PG (27.0-31.0); MEAN CORPUSCULAR HGB CONC 33.3 g/dL (33.0-36.5); MEAN CORPUSCULAR VOLUME 86.6 FL (78-98); MEAN PLATELET VOLUME 6.5 FL (7.4-10.4); MONOCYTES # (AUTO) 0.6 X10'3 (0-0.9); MONOCYTES % (AUTO) 5.6 % (2-12); NEUTROPHILS # (AUTO) 8.9 X10'3 (1.8-7.7); NEUTROPHILS % (AUTO) 83.5 % (42-75); PLATELET COUNT 859 X10'3 (140-440); RED BLOOD COUNT 3.07 X10'6 (4.70-6.10); RED CELL DISTRIBUTION WIDTH 14.9 % (11.5-14.5); WHITE BLOOD COUNT 10.6 X10'3 (4.5-11.0)
[2023-11-16 11:35] LABS: ALANINE AMINOTRANSFERASE 27 U/L (12-78); ALBUMIN 2.2 G/DL (3.4-5.0); ALBUMIN/GLOBULIN RATIO 0.6 (1.1-1.5); ALKALINE PHOSPHATASE 74 IU/L (46-116); ANION GAP 8 (8-16); ASPARTATE AMINO TRANSFERASE 17 U/L (10-37); BILIRUBIN,TOTAL 0.4 MG/DL (0.1-1.0); BLOOD UREA NITROGEN 8 MG/DL (7-18); BUN/CREATININE RATIO 9.6 (10.0-20.0); CALCIUM 8.8 MG/DL (8.5-10.1); CHLORIDE 107 MMOL/L (99-107); CREATININE 0.83 MG/DL (0.60-1.10); GLUCOSE 195 MG/DL (70-104); POTASSIUM 3.6 MMOL/L (3.5-5.1); SODIUM 143 MMOL/L (135-145); TOTAL CARBON DIOXIDE 28.3 MMOL/L (24-32); TOTAL PROTEIN 6.1 G/DL (6.4-8.2); eCRCL 122 ML/MIN; eGFR > 90 ML/MIN
[2023-11-16 13:52] LABS: PRO BRAIN NATRIURETIC PEPTIDE 62 PG/ML (0-125)
[2023-11-16] MEDS ORDERED: metoclopramide 10mg tablet PO PRN (14:55)
[2023-11-16 18:00] VITALS: BP 141/80; PULSE 79; RESP 16; TEMP 97.7; O2SAT 94
[2023-11-16 20:00] VITALS: RESP 16; O2SAT 94
[2023-11-16 22:00] VITALS: BP 134/82; PULSE 82; RESP 22; TEMP 98.2; O2SAT 92
[2023-11-17] VITALS (18 sets, daily range): BP systolic 116–147; BP diastolic 56–85; PULSE 64–92; RESP 11–22; TEMP 97.3–98.4; O2SAT 92–99
[2023-11-17] MEDS ORDERED: sugammadex 200mg/2ml injection IV ONE (08:00)
[2023-11-17 10:32] LABS: BASOPHILS # (AUTO) 0.1 X10'3 (0-0.2); EOSINOPHILS # (AUTO) 0.2 X10'3 (0-0.9); HEMOGLOBIN 8.9 g/dl (14.0-17.9); MEAN PLATELET VOLUME 6.3 FL (7.4-10.4); MONOCYTES # (AUTO) 0.5 X10'3 (0-0.9)
[2023-11-17 10:34] LABS: BASOPHILS % (AUTO) 1.3 % (0-1); EOSINOPHILS % (AUTO) 2.6 % (0-6); HEMATOCRIT 27.2 % (42.0-52.0); LYMPHOCYTES # (AUTO) 0.8 X10'3 (1.1-4.8); LYMPHOCYTES % (AUTO) 9.8 % (21-51); MEAN CORPUSCULAR HEMOGLOBIN 28.4 PG (27.0-31.0); MEAN CORPUSCULAR HGB CONC 32.7 g/dL (33.0-36.5); MEAN CORPUSCULAR VOLUME 86.9 FL (78-98); MONOCYTES % (AUTO) 6.3 % (2-12); NEUTROPHILS # (AUTO) 6.1 X10'3 (1.8-7.7); PLATELET COUNT 760 X10'3 (140-440); RED BLOOD COUNT 3.13 X10'6 (4.70-6.10); WHITE BLOOD COUNT 7.6 X10'3 (4.5-11.0)
[2023-11-17 10:42] LABS: ALANINE AMINOTRANSFERASE 24 U/L (12-78); ALBUMIN 2.2 G/DL (3.4-5.0); ALBUMIN/GLOBULIN RATIO 0.5 (1.1-1.5); ALKALINE PHOSPHATASE 69 IU/L (46-116); ANION GAP 9 (8-16); ASPARTATE AMINO TRANSFERASE 16 U/L (10-37); BILIRUBIN,TOTAL 0.4 MG/DL (0.1-1.0); BLOOD UREA NITROGEN 8 MG/DL (7-18); BUN/CREATININE RATIO 9.4 (10.0-20.0); CALCIUM 8.4 MG/DL (8.5-10.1); CHLORIDE 106 MMOL/L (99-107); CREATININE 0.85 MG/DL (0.60-1.10); GLUCOSE 147 MG/DL (70-104); SODIUM 143 MMOL/L (135-145); TOTAL CARBON DIOXIDE 28.1 MMOL/L (24-32); TOTAL PROTEIN 6.5 G/DL (6.4-8.2); eCRCL 120 ML/MIN; eGFR > 90 ML/MIN
[2023-11-17] MEDS: loperamide 2mg capsule PO ONE (15:01)
[2023-11-17] MEDS: lactose-reduced food (Ensure Enlive) - 237ml bottle PO SCH (18:00)
[2023-11-17] MEDS ORDERED: fentaNYL/PF 50MCG/1 ML 2ML syringe ONE (19:24)
[2023-11-17] MEDS ORDERED: midazolam 1 mg/ML 2ml injection ONE (19:24)
[2023-11-17] MEDS ORDERED: propofol inj 20 ML IV ONE (19:28)
[2023-11-17] MEDS ORDERED: ringers solution, lacted 1,000 ML IV SCH (20:55)
[2023-11-17] MEDS ORDERED: morphine 2 MG/ML inj. syringe IV PRN (20:55)
[2023-11-17] MEDS ORDERED: proCHLORperazine 10 MG/2 ml inj IV PRN (20:55)
[2023-11-17] MEDS ORDERED: morphine 4 MG/ML inj SYRINge IV PRN (20:55)
[2023-11-17] MEDS ORDERED: ondansetron/PF 4mg/2ml inj IV PRN (20:55)
[2023-11-17] MEDS ORDERED: meperidine/PF 25mg/ml syringe IV PRN ×3 (20:55)
[2023-11-17] MEDS: loperamide 2mg capsule PO SCH (22:59)
[2023-11-18] VITALS (10 sets, daily range): BP systolic 103–130; BP diastolic 41–72; PULSE 70–93; RESP 16–22; TEMP 97.9–98.3; O2SAT 94–97
[2023-11-18 09:29] LABS: EOSINOPHILS # (AUTO) 0.2 X10'3 (0-0.9); LYMPHOCYTES # (AUTO) 0.8 X10'3 (1.1-4.8); MEAN PLATELET VOLUME 6.9 FL (7.4-10.4); MONOCYTES # (AUTO) 0.6 X10'3 (0-0.9); MONOCYTES % (AUTO) 5.9 % (2-12); RED BLOOD COUNT 2.79 X10'6 (4.70-6.10)
[2023-11-18 09:32] LABS: BASOPHILS # (AUTO) 0.3 X10'3 (0-0.2); BASOPHILS % (AUTO) 2.6 % (0-1); EOSINOPHILS % (AUTO) 1.8 % (0-6); HEMATOCRIT 24.2 % (42.0-52.0); LYMPHOCYTES % (AUTO) 8.2 % (21-51); MEAN CORPUSCULAR HEMOGLOBIN 28.6 PG (27.0-31.0); MEAN CORPUSCULAR VOLUME 86.6 FL (78-98); NEUTROPHILS # (AUTO) 7.9 X10'3 (1.8-7.7); NEUTROPHILS % (AUTO) 81.5 % (42-75); PLATELET COUNT 720 X10'3 (140-440); RED CELL DISTRIBUTION WIDTH 15.2 % (11.5-14.5); WHITE BLOOD COUNT 9.7 X10'3 (4.5-11.0)
[2023-11-18 10:51] LABS: ALANINE AMINOTRANSFERASE 23 U/L (12-78); ALBUMIN 2.1 G/DL (3.4-5.0); ALBUMIN/GLOBULIN RATIO 0.6 (1.1-1.5); ALKALINE PHOSPHATASE 64 IU/L (46-116); ANION GAP 11 (8-16); ASPARTATE AMINO TRANSFERASE 29 U/L (10-37); BILIRUBIN,TOTAL 0.3 MG/DL (0.1-1.0); BLOOD UREA NITROGEN 7 MG/DL (7-18); BUN/CREATININE RATIO 8.9 (10.0-20.0); CALCIUM 8.1 MG/DL (8.5-10.1); CHLORIDE 110 MMOL/L (99-107); CREATININE 0.79 MG/DL (0.60-1.10); GLUCOSE 172 MG/DL (70-104); POTASSIUM 3.1 MMOL/L (3.5-5.1); SODIUM 144 MMOL/L (135-145); TOTAL CARBON DIOXIDE 22.7 MMOL/L (24-32); TOTAL PROTEIN 5.6 G/DL (6.4-8.2); eCRCL 129 ML/MIN; eGFR > 90 ML/MIN
[2023-11-18] MEDS: potassium Cl 20 mEq SR tablet PO PRN (16:59)
[2023-11-19] VITALS (7 sets, daily range): BP systolic 125–135; BP diastolic 70–81; PULSE 71–81; RESP 18–20; TEMP 98–98.2; O2SAT 91–98
[2023-11-19 12:24] LABS: BASOPHILS # (AUTO) 0.1 X10'3 (0-0.2); BASOPHILS % (AUTO) 1.8 % (0-1); EOSINOPHILS # (AUTO) 0.2 X10'3 (0-0.9); EOSINOPHILS % (AUTO) 3.9 % (0-6); HEMATOCRIT 24.6 % (42.0-52.0); HEMOGLOBIN 8.1 g/dl (14.0-17.9); LYMPHOCYTES # (AUTO) 0.7 X10'3 (1.1-4.8); MEAN CORPUSCULAR HEMOGLOBIN 28.5 PG (27.0-31.0); MEAN CORPUSCULAR HGB CONC 32.9 g/dL (33.0-36.5); MEAN CORPUSCULAR VOLUME 86.6 FL (78-98); MEAN PLATELET VOLUME 6.6 FL (7.4-10.4); MONOCYTES # (AUTO) 0.3 X10'3 (0-0.9); MONOCYTES % (AUTO) 5.6 % (2-12); NEUTROPHILS # (AUTO) 4.6 X10'3 (1.8-7.7); NEUTROPHILS % (AUTO) 76.7 % (42-75); PLATELET COUNT 540 X10'3 (140-440); RED BLOOD COUNT 2.84 X10'6 (4.70-6.10); RED CELL DISTRIBUTION WIDTH 15.1 % (11.5-14.5); WHITE BLOOD COUNT 6.1 X10'3 (4.5-11.0)
[2023-11-19 12:36] LABS: ALANINE AMINOTRANSFERASE 23 U/L (12-78); ALBUMIN/GLOBULIN RATIO 0.5 (1.1-1.5); ALKALINE PHOSPHATASE 81 IU/L (46-116); ANION GAP 6 (8-16); ASPARTATE AMINO TRANSFERASE 12 U/L (10-37); BILIRUBIN,TOTAL 0.2 MG/DL (0.1-1.0); BLOOD UREA NITROGEN 7 MG/DL (7-18); BUN/CREATININE RATIO 9.2 (10.0-20.0); CALCIUM 8.3 MG/DL (8.5-10.1); CHLORIDE 112 MMOL/L (99-107); CREATININE 0.76 MG/DL (0.60-1.10); GLUCOSE 291 MG/DL (70-104); POTASSIUM 3.6 MMOL/L (3.5-5.1); SODIUM 144 MMOL/L (135-145); TOTAL CARBON DIOXIDE 25.6 MMOL/L (24-32); TOTAL PROTEIN 5.9 G/DL (6.4-8.2); eCRCL 134 ML/MIN; eGFR > 90 ML/MIN
[2023-11-19] MEDS: loperamide 2mg capsule PO PRN (19:51)
[2023-11-20 06:00] VITALS: BP 124/82; PULSE 66; RESP 18; TEMP 97.3; O2SAT 98
[2023-11-20 07:45] VITALS: RESP 16
[2023-11-20 10:00] VITALS: BP 118/62; PULSE 76; RESP 17; TEMP 98.6; O2SAT 96
[2023-11-20] MEDS: HYDROmorphone/PF 0.2 MG/ML SYRINGE IV PRN (11:44)
[2023-11-20] MEDS ORDERED: HYDROmorphone/PF 0.2 MG/ML SYRINGE IM ONE (12:45)
[2023-11-20] MEDS: HYDROmorphone/PF 0.2 MG/ML SYRINGE IV ONE (13:03)
[2023-11-20 16:27] LABS: BASOPHILS # (AUTO) 0.1 X10'3 (0-0.2); EOSINOPHILS # (AUTO) 0.4 X10'3 (0-0.9); EOSINOPHILS % (AUTO) 3.2 % (0-6); HEMOGLOBIN 8.7 g/dl (14.0-17.9); LYMPHOCYTES # (AUTO) 0.9 X10'3 (1.1-4.8); LYMPHOCYTES % (AUTO) 8.3 % (21-51); MEAN CORPUSCULAR HEMOGLOBIN 28.6 PG (27.0-31.0); MEAN CORPUSCULAR HGB CONC 33.4 g/dL (33.0-36.5); MEAN CORPUSCULAR VOLUME 85.8 FL (78-98); MEAN PLATELET VOLUME 6.4 FL (7.4-10.4); MONOCYTES # (AUTO) 0.5 X10'3 (0-0.9); MONOCYTES % (AUTO) 4.7 % (2-12); NEUTROPHILS # (AUTO) 9.2 X10'3 (1.8-7.7); NEUTROPHILS % (AUTO) 82.8 % (42-75); PLATELET COUNT 540 X10'3 (140-440); RED BLOOD COUNT 3.03 X10'6 (4.70-6.10); RED CELL DISTRIBUTION WIDTH 14.5 % (11.5-14.5); WHITE BLOOD COUNT 11.1 X10'3 (4.5-11.0)
[2023-11-20 16:45] LABS: ALANINE AMINOTRANSFERASE 29 U/L (12-78); ALBUMIN 2.3 G/DL (3.4-5.0); ALBUMIN/GLOBULIN RATIO 0.6 (1.1-1.5); ALKALINE PHOSPHATASE 81 IU/L (46-116); ANION GAP 7 (8-16); ASPARTATE AMINO TRANSFERASE 18 U/L (10-37); BILIRUBIN,TOTAL 0.3 MG/DL (0.1-1.0); BLOOD UREA NITROGEN 15 MG/DL (7-18); BUN/CREATININE RATIO 17.2 (10.0-20.0); CALCIUM 8.7 MG/DL (8.5-10.1); CHLORIDE 107 MMOL/L (99-107); CREATININE 0.87 MG/DL (0.60-1.10); GLUCOSE 162 MG/DL (70-104); POTASSIUM 3.8 MMOL/L (3.5-5.1); SODIUM 142 MMOL/L (135-145); TOTAL CARBON DIOXIDE 28.3 MMOL/L (24-32); TOTAL PROTEIN 6.2 G/DL (6.4-8.2); eCRCL 117 ML/MIN; eGFR > 90 ML/MIN
[2023-11-20 18:00] VITALS: BP 123/72; PULSE 78; RESP 18; TEMP 98.2; O2SAT 97
[2023-11-20 20:00] VITALS: RESP 18; O2SAT 94
[2023-11-20 22:00] VITALS: BP 128/70; PULSE 81; RESP 20; TEMP 97.9; O2SAT 96
[2023-11-21 06:47] VITALS: BP 132/78; PULSE 82; RESP 19; TEMP 97.8; O2SAT 98
[2023-11-21 08:08] VITALS: RESP 19; O2SAT 98
[2023-11-21 09:38] LABS: BASOPHILS # (AUTO) 0.1 X10'3 (0-0.2); BASOPHILS % (AUTO) 1.2 % (0-1); EOSINOPHILS # (AUTO) 0.5 X10'3 (0-0.9); EOSINOPHILS % (AUTO) 5.2 % (0-6); HEMATOCRIT 26.6 % (42.0-52.0); HEMOGLOBIN 8.9 g/dl (14.0-17.9); LYMPHOCYTES # (AUTO) 0.8 X10'3 (1.1-4.8); LYMPHOCYTES % (AUTO) 8.7 % (21-51); MEAN CORPUSCULAR HEMOGLOBIN 28.6 PG (27.0-31.0); MEAN CORPUSCULAR HGB CONC 33.3 g/dL (33.0-36.5); MEAN CORPUSCULAR VOLUME 85.9 FL (78-98); MEAN PLATELET VOLUME 6.6 FL (7.4-10.4); MONOCYTES # (AUTO) 0.4 X10'3 (0-0.9); MONOCYTES % (AUTO) 4.7 % (2-12); NEUTROPHILS # (AUTO) 7.2 X10'3 (1.8-7.7); NEUTROPHILS % (AUTO) 80.2 % (42-75); PLATELET COUNT 466 X10'3 (140-440); RED BLOOD COUNT 3.09 X10'6 (4.70-6.10); RED CELL DISTRIBUTION WIDTH 15.1 % (11.5-14.5); WHITE BLOOD COUNT 8.9 X10'3 (4.5-11.0)
[2023-11-21 10:06] LABS: ALANINE AMINOTRANSFERASE 31 U/L (12-78); ALBUMIN 2.4 G/DL (3.4-5.0); ALBUMIN/GLOBULIN RATIO 0.6 (1.1-1.5); ALKALINE PHOSPHATASE 78 IU/L (46-116); ANION GAP 10 (8-16); ASPARTATE AMINO TRANSFERASE 16 U/L (10-37); BILIRUBIN,TOTAL 0.3 MG/DL (0.1-1.0); BLOOD UREA NITROGEN 17 MG/DL (7-18); CALCIUM 8.6 MG/DL (8.5-10.1); CHLORIDE 105 MMOL/L (99-107); CREATININE 0.85 MG/DL (0.60-1.10); GLUCOSE 300 MG/DL (70-104); POTASSIUM 3.6 MMOL/L (3.5-5.1); SODIUM 140 MMOL/L (135-145); TOTAL CARBON DIOXIDE 25.4 MMOL/L (24-32); TOTAL PROTEIN 6.5 G/DL (6.4-8.2); eCRCL 120 ML/MIN; eGFR > 90 ML/MIN
[2023-11-21 10:49] VITALS: BP 123/66; PULSE 85; RESP 17; TEMP 98.5; O2SAT 97
[2023-11-21 18:00] VITALS: BP 132/75; PULSE 84; RESP 17; TEMP 97.1; O2SAT 95
[2023-11-21 20:00] VITALS: RESP 17; O2SAT 95
[2023-11-21 22:00] VITALS: BP 138/79; PULSE 78; RESP 18; TEMP 98.5; O2SAT 97
[2023-11-22 06:40] VITALS: BP 129/75; PULSE 75; RESP 14; TEMP 98; O2SAT 98
[2023-11-22 07:27] VITALS: RESP 14; O2SAT 98
[2023-11-22] MEDS: HYDROmorphone inj. 0.5 MG/0.5 ML DISP.SYRIN IV PRN (08:57)
[2023-11-22 11:45] LABS: BASOPHILS # (AUTO) 0.1 X10'3 (0-0.2); BASOPHILS % (AUTO) 1.8 % (0-1); EOSINOPHILS # (AUTO) 0.6 X10'3 (0-0.9); EOSINOPHILS % (AUTO) 8.2 % (0-6); HEMATOCRIT 27.1 % (42.0-52.0); HEMOGLOBIN 9.1 g/dl (14.0-17.9); LYMPHOCYTES # (AUTO) 0.9 X10'3 (1.1-4.8); MEAN CORPUSCULAR HEMOGLOBIN 28.8 PG (27.0-31.0); MEAN CORPUSCULAR HGB CONC 33.6 g/dL (33.0-36.5); MEAN CORPUSCULAR VOLUME 85.8 FL (78-98); MEAN PLATELET VOLUME 7.1 FL (7.4-10.4); MONOCYTES # (AUTO) 0.3 X10'3 (0-0.9); MONOCYTES % (AUTO) 4.9 % (2-12); NEUTROPHILS % (AUTO) 72.1 % (42-75); PLATELET COUNT 445 X10'3 (140-440); RED BLOOD COUNT 3.16 X10'6 (4.70-6.10); RED CELL DISTRIBUTION WIDTH 15.1 % (11.5-14.5)
[2023-11-22 12:00] LABS: ALANINE AMINOTRANSFERASE 38 U/L (12-78); ALBUMIN 2.7 G/DL (3.4-5.0); ALBUMIN/GLOBULIN RATIO 0.7 (1.1-1.5); ALKALINE PHOSPHATASE 86 IU/L (46-116); ANION GAP 10 (8-16); ASPARTATE AMINO TRANSFERASE 17 U/L (10-37); BILIRUBIN,TOTAL 0.4 MG/DL (0.1-1.0); BLOOD UREA NITROGEN 16 MG/DL (7-18); BUN/CREATININE RATIO 22.9 (10.0-20.0); CALCIUM 8.8 MG/DL (8.5-10.1); CHLORIDE 104 MMOL/L (99-107); GLUCOSE 209 MG/DL (70-104); POTASSIUM 3.9 MMOL/L (3.5-5.1); SODIUM 140 MMOL/L (135-145); TOTAL CARBON DIOXIDE 26.5 MMOL/L (24-32); TOTAL PROTEIN 6.8 G/DL (6.4-8.2); eCRCL 145 ML/MIN; eGFR > 90 ML/MIN
[2023-11-22 12:36] VITALS: BP 127/74; PULSE 62; RESP 15; TEMP 98.6; O2SAT 94
[2023-11-22] MEDS: HYDROmorphone inj. 0.5 MG/0.5 ML DISP.SYRIN IV ONE (13:31)
[2023-11-22 18:00] VITALS: BP 148/66; PULSE 70; RESP 16; TEMP 97.4; O2SAT 96
[2023-11-22 20:00] VITALS: RESP 16; O2SAT 96
[2023-11-22 22:00] VITALS: BP 133/78; PULSE 86; RESP 20; TEMP 99.1; O2SAT 96
[2023-11-23 06:41] VITALS: BP 124/79; PULSE 86; RESP 14; TEMP 98.2; O2SAT 97
[2023-11-23 08:00] VITALS: RESP 16
[2023-11-23 10:00] VITALS: BP 128/76; PULSE 103; RESP 16; TEMP 98.2; O2SAT 96
[2023-11-23 18:00] VITALS: BP 135/80; PULSE 79; RESP 16; TEMP 98.4; O2SAT 97
[2023-11-23 20:00] VITALS: RESP 16; O2SAT 97
[2023-11-23 22:00] VITALS: BP 132/78; PULSE 98; RESP 16; TEMP 99.5; O2SAT 97
[2023-11-24 06:30] VITALS: BP 133/75; PULSE 86; RESP 20; TEMP 98.5; O2SAT 96
[2023-11-24 08:00] VITALS: RESP 16
[2023-11-24 10:27] LABS: BASOPHILS # (AUTO) 0.1 X10'3 (0-0.2); BASOPHILS % (AUTO) 1.7 % (0-1); EOSINOPHILS # (AUTO) 0.6 X10'3 (0-0.9); EOSINOPHILS % (AUTO) 8.9 % (0-6); HEMATOCRIT 28.5 % (42.0-52.0); HEMOGLOBIN 9.4 g/dl (14.0-17.9); LYMPHOCYTES # (AUTO) 0.9 X10'3 (1.1-4.8); MEAN CORPUSCULAR HEMOGLOBIN 28.2 PG (27.0-31.0); MEAN CORPUSCULAR HGB CONC 33.2 g/dL (33.0-36.5); MEAN PLATELET VOLUME 6.9 FL (7.4-10.4); MONOCYTES # (AUTO) 0.3 X10'3 (0-0.9); NEUTROPHILS % (AUTO) 71.4 % (42-75); PLATELET COUNT 380 X10'3 (140-440); RED BLOOD COUNT 3.35 X10'6 (4.70-6.10); RED CELL DISTRIBUTION WIDTH 15.4 % (11.5-14.5)
[2023-11-24 10:45] LABS: ALANINE AMINOTRANSFERASE 46 U/L (12-78); ALBUMIN 2.8 G/DL (3.4-5.0); ALBUMIN/GLOBULIN RATIO 0.7 (1.1-1.5); ALKALINE PHOSPHATASE 89 IU/L (46-116); ANION GAP 10 (8-16); ASPARTATE AMINO TRANSFERASE 17 U/L (10-37); BILIRUBIN,TOTAL 0.4 MG/DL (0.1-1.0); BLOOD UREA NITROGEN 18 MG/DL (7-18); BUN/CREATININE RATIO 28.1 (10.0-20.0); CALCIUM 8.8 MG/DL (8.5-10.1); CHLORIDE 104 MMOL/L (99-107); CREATININE 0.64 MG/DL (0.60-1.10); GLUCOSE 188 MG/DL (70-104); POTASSIUM 3.6 MMOL/L (3.5-5.1); SODIUM 139 MMOL/L (135-145); TOTAL PROTEIN 6.9 G/DL (6.4-8.2); eCRCL 159 ML/MIN; eGFR > 90 ML/MIN
[2023-11-24 12:05] VITALS: BP 126/75; PULSE 76; RESP 18; TEMP 97.8; O2SAT 98
[2023-11-24 18:00] VITALS: BP 138/84; PULSE 87; RESP 14; TEMP 98.9; O2SAT 96
[2023-11-24 20:00] VITALS: RESP 16
[2023-11-24 22:00] VITALS: BP 122/63; PULSE 76; RESP 14; TEMP 97.5; O2SAT 97
[2023-11-25 06:31] VITALS: BP 142/87; PULSE 82; RESP 16; TEMP 98.5; O2SAT 99
[2023-11-25 08:00] VITALS: RESP 16
[2023-11-25 11:46] LABS: BASOPHILS # (AUTO) 0.1 X10'3 (0-0.2); BASOPHILS % (AUTO) 0.9 % (0-1); EOSINOPHILS # (AUTO) 0.6 X10'3 (0-0.9); EOSINOPHILS % (AUTO) 7.3 % (0-6); HEMATOCRIT 29.2 % (42.0-52.0); HEMOGLOBIN 9.6 g/dl (14.0-17.9); LYMPHOCYTES # (AUTO) 0.9 X10'3 (1.1-4.8); LYMPHOCYTES % (AUTO) 11.2 % (21-51); MEAN CORPUSCULAR HEMOGLOBIN 28.1 PG (27.0-31.0); MEAN CORPUSCULAR HGB CONC 32.8 g/dL (33.0-36.5); MEAN CORPUSCULAR VOLUME 85.5 FL (78-98); MEAN PLATELET VOLUME 7.3 FL (7.4-10.4); MONOCYTES # (AUTO) 0.4 X10'3 (0-0.9); NEUTROPHILS # (AUTO) 5.9 X10'3 (1.8-7.7); NEUTROPHILS % (AUTO) 75.6 % (42-75); PLATELET COUNT 354 X10'3 (140-440); RED BLOOD COUNT 3.42 X10'6 (4.70-6.10); RED CELL DISTRIBUTION WIDTH 15.1 % (11.5-14.5); WHITE BLOOD COUNT 7.8 X10'3 (4.5-11.0)
[2023-11-25 12:01] LABS: ALANINE AMINOTRANSFERASE 36 U/L (12-78); ALBUMIN 2.7 G/DL (3.4-5.0); ALBUMIN/GLOBULIN RATIO 0.8 (1.1-1.5); ALKALINE PHOSPHATASE 89 IU/L (46-116); ANION GAP 9 (8-16); ASPARTATE AMINO TRANSFERASE 15 U/L (10-37); BILIRUBIN,TOTAL 0.3 MG/DL (0.1-1.0); BLOOD UREA NITROGEN 18 MG/DL (7-18); BUN/CREATININE RATIO 30.5 (10.0-20.0); CALCIUM 8.6 MG/DL (8.5-10.1); CHLORIDE 107 MMOL/L (99-107); CREATININE 0.59 MG/DL (0.60-1.10); GLUCOSE 215 MG/DL (70-104); POTASSIUM 3.4 MMOL/L (3.5-5.1); SODIUM 140 MMOL/L (135-145); TOTAL CARBON DIOXIDE 23.7 MMOL/L (24-32); TOTAL PROTEIN 6.3 G/DL (6.4-8.2); eCRCL 172 ML/MIN; eGFR > 90 ML/MIN
[2023-11-25] MEDS: lactose-reduced food (Ensure Enlive) - 237ml bottle PO SCH (14:40)
[2023-11-25 18:00] VITALS: BP 115/68; PULSE 86; RESP 20; TEMP 98.9; O2SAT 96
[2023-11-25 22:00] VITALS: BP 129/73; PULSE 80; RESP 20; TEMP 98; O2SAT 96
[2023-11-26 06:00] VITALS: BP 138/86; PULSE 80; RESP 18; TEMP 98; O2SAT 97
[2023-11-26 11:00] VITALS: BP 138/83; PULSE 92; RESP 18; TEMP 98.4; O2SAT 98
== END 2023-11-26 13:00 | DRG 853 ==
LOC: ER 22:49 → EEVIPCON 11-02 03:37 → ED HOLD 11-02 03:37 → PCU 3S 11-02 07:26 → CICU 2S 11-03 17:39 → SUR 3N 11-05 10:39
PROVIDERS: ADMIT Internal Medicine Pulmonary Disease; ATTEND Internal Medicine
PROC: 0DBQ0ZZ Excision of Anus, Open Approach (ICD-10-PCS; 2023-11-02)
PROC: BW211ZZ Computerized Tomography (CT Scan) of Abdomen and Pelvis using Low Osmolar Contrast (ICD-10-PCS; 2023-11-02)
PROC: 0JBC0ZZ Excision of Pelvic Region Subcutaneous Tissue and Fascia, Open Approach (ICD-10-PCS; principal; 2023-11-02 05:09)
PROC: 0JB90ZZ Excision of Buttock Subcutaneous Tissue and Fascia, Open Approach (ICD-10-PCS; 2023-11-03)
PROC: 0JB70ZZ Excision of Back Subcutaneous Tissue and Fascia, Open Approach (ICD-10-PCS; 2023-11-06)
PROC: 0KBN0ZZ Excision of Right Hip Muscle, Open Approach (ICD-10-PCS; 2023-11-08)
PROC: 0KBQ0ZZ Excision of Right Upper Leg Muscle, Open Approach (ICD-10-PCS; 2023-11-08)
PROC: 0JB90ZZ Excision of Buttock Subcutaneous Tissue and Fascia, Open Approach (ICD-10-PCS; 2023-11-10)
PROC: 0JBL0ZZ Excision of Right Upper Leg Subcutaneous Tissue and Fascia, Open Approach (ICD-10-PCS; 2023-11-10)
PROC: 0KDN0ZZ Extraction of Right Hip Muscle, Open Approach (ICD-10-PCS; 2023-11-13)
PROC: 3E10X8Z Irrigation of Skin and Mucous Membranes using Irrigating Substance (ICD-10-PCS; 2023-11-17)
PROC: 5A09357 Assistance with Respiratory Ventilation, Less than 24 Consecutive Hours, Continuous Positive Airway Pressure (ICD-10-PCS; 2023-11-19)
DX: A41.9 Sepsis, unspecified organism (principal); M72.6 Necrotizing fasciitis; E11.52 Type 2 diabetes mellitus with diabetic peripheral angiopathy with gangrene; E87.1 Hypo-osmolality and hyponatremia; N17.9 Acute kidney failure, unspecified; K56.7 Ileus, unspecified; E11.65 Type 2 diabetes mellitus with hyperglycemia; E88.09 Other disorders of plasma-protein metabolism, not elsewhere classified; E87.6 Hypokalemia; F31.9 Bipolar disorder, unspecified; E11.43 Type 2 diabetes mellitus with diabetic autonomic (poly)neuropathy; K31.84 Gastroparesis; Z20.822 Contact with and (suspected) exposure to COVID-19; D64.9 Anemia, unspecified; K64.9 Unspecified hemorrhoids; L89.159 Pressure ulcer of sacral region, unspecified stage; N49.3 Fournier gangrene; N50.89 Other specified disorders of the male genital organs; Z88.2 Allergy status to sulfonamides; R06.6 Hiccough; Z88.8 Allergy status to other drugs, medicaments and biological substances
CPT/HCPCS: 96365; 96367; 96375; 99285; Z7506; Z7508; 36415; 71045; 73700; 74018; 74177; 76870; 80047; 80048; 80053; 80061; 80202; 81003; 82009; 82550; 82948; 83036; 83605; 83615; 83690; 83735; 83880; 83930; 84100; 84132; 84145; 85007; 85025; 85610; 85651; 85730; 86140; 87040; 87070; 87075; 87077; 87081; 87102; 87186; 87811; 93976; 97110; 97116; 97161; 97164; 97530; A4421; A4615; A4618; A4649; A5200; A6154; A6213; A6223; A6253; A6258; A6402; A6446; A6449; A7000; G0378; J0131; J1100; J1170; J1650; J1815; J2250; J2270; J2370; J2405; J2543; J2704; J2710; J3010; J3370; J3480; J3490; J7030; J7040; J7120; P9045; P9047; Q9967